=== PATIENT | female | born 1950 | race Caucasian/White ===

== ENCOUNTER 2023-10-27 15:52 | Emergency (ER) | payer MEDICARE ==
[~2023-10-27] VITALS: Ht 157.5 cm; Wt 65.8 kg
[2023-10-27 15:52] VITALS: TEMP 99
[2023-10-27] MEDS ORDERED: OLANZAPINE5 MG PO (16:17)
[2023-10-27] MEDS ORDERED: HALDOL5 MG PO (16:17)
[2023-10-27] MEDS ORDERED: TRAZODONE HCL50 MG PO (16:17)
[2023-10-27] MEDS ORDERED: DIVALPROEX SOD500 MG PO (16:17)
[2023-10-27] MEDS: SODIUM CHLORIDE 0.9% 1000ML 1,000 ML IV STA ×2 (16:23→17:43)
[2023-10-27 16:26] LABS: BASOPHILS % 0.5 % (0.0-1.0); EOSINOPHILS % 0.1 % (0.0-6.0); HEMATOCRIT 40.6 % (34.2-44.1); HEMOGLOBIN 13.7 g/dL (12.0-16.0); LYMPHOCYTES # (AUTO) 1.5 (1.0-3.2); LYMPHOCYTES % 17.2 % (18.0-39.1); MEAN CORPUSCULAR HEMOGLOBIN 33.6 pg (28-32); MEAN CORPUSCULAR HGB CONC 33.7 g/dL (31-35); MEAN CORPUSCULAR VOLUME 99.5 fL (81-99); MONOCYTES # (AUTO) 0.8 (0.2-0.8); MONOCYTES % 9.6 % (4.4-11.3); NEUTROPHILS # (AUTO) 6.1 (2.1-6.9); PLATELET COUNT 190 x10e3/uL (140-360); RED BLOOD COUNT 4.08 x10e6/uL (3.6-5.1); RED CELL DISTRIBUTION WIDTH 13.5 % (11.7-14.4); WHITE BLOOD COUNT 8.53 x10e3/uL (4.8-10.8)
[2023-10-27 16:42] LABS: COLOR,URINE YELLOW (YELLOW)
[2023-10-27 16:43] LABS: AMPHETAMINES SCREEN,URINE NEGATIVE (NEGATIVE); BENZODIAZEPINES SCREEN,URINE NEGATIVE (NEGATIVE); BILIRUBIN,URINE NEGATIVE (NEGATIVE); CANNABINOIDS SCREEN,URINE NEGATIVE (NEGATIVE); CLARITY,URINE HAZY (CLEAR); GLUCOSE, URINE NEGATIVE (NEGATIVE); KETONES,URINE TRACE (NEGATIVE); LEUKOCYTE ESTERASE ,URINE SMALL (NEGATIVE); METHADONE SCREEN, URINE NEGATIVE (NEGATIVE); NITRITE,URINE POSITIVE (NEGATIVE); OPIATES SCREEN,URINE NEGATIVE (NEGATIVE); PH,URINE 5.5 (5 - 7); PHENCYCLIDINE SCREEN,URINE NEGATIVE (NEGATIVE); PROTEIN,URINE DIPSTICK TRACE (NEGATIVE); URINE UROBILINOGEN 0.2 mg/dL (0.2 - 1)
[2023-10-27 16:46] LABS: ALBUMIN 3.5 g/dL (3.5-5.0); ALBUMIN/GLOBULIN RATIO 0.9 (0.8-2.0); ANION GAP 23.7 mmol/L (8-16); BILIRUBIN,TOTAL 0.3 mg/dL (0.2-1.2); CALCIUM 9.1 mg/dL (8.4-10.2); CREATININE, SERUM 1.19 mg/dL (0.57-1.11); MAGNESIUM 1.8 MG/DL (1.3-2.1); POTASSIUM 3.7 mmol/L (3.5-5.1); TOTAL PROTEIN 7.2 g/dL (6.5-8.1)
[2023-10-27 16:53] LABS: BACTERIA,URINE MANY /HPF; EPITHELIAL CELLS,URINE FEW /LPF; WBC,URINE (MAN) 21-50 /HPF (0-5)
[2023-10-27 16:56] LABS: INR 0.98; PROTHROMBIN TIME 13.7 seconds (11.9-14.5)
[2023-10-27 16:57] LABS: PARTIAL THROMBOPLASTIN TIME 26.8 seconds (23.8-35.5)
[2023-10-27 17:06] LABS: INFLUENZAE A&B ANTIGEN (RAPID) NEGATIVE (NEGATIVE); RESPIRATORY SYNC. VIRUS NEGATIVE (NEGATIVE)
[2023-10-27 17:08] LABS: THYROID STIMULATING HORMONE 4.224 uIU/mL (0.350-4.940)
[2023-10-27 17:18] LABS: TROPONIN I 0.838 ng/mL (0-0.300)
[2023-10-27] MEDS: ASPIRIN 81 MG CHEW TAB PO ONE (17:43)
[2023-10-27 18:00] LABS: ABG HCO3 21 mmol/L (22-26); ABG PCO2 33 mmHg (35-45); ABG PH 7.42 (7.35-7.45); ABG PO2 66 mmHg (80-105)
[2023-10-27 18:01] LABS: ABG TCO2 22
[2023-10-27] MEDS: Vancomycin IV 1 GM in SODIUM CHLORIDE 0.9% 250ML 250 ML IV ONE (18:03)
[2023-10-27 18:36] LABS: ANION GAP 13.8 mmol/L (8-16); BILIRUBIN,TOTAL 0.2 mg/dL (0.2-1.2); CALCIUM 7.5 mg/dL (8.4-10.2); CREATININE, SERUM 0.88 mg/dL (0.57-1.11); POTASSIUM 3.8 mmol/L (3.5-5.1); TOTAL PROTEIN 5.9 g/dL (6.5-8.1)
[2023-10-27 18:44] LABS: TROPONIN I 0.675 ng/mL (0-0.300)
[2023-10-27 19:47] VITALS: PULSE 62; RESP 20
[2023-10-27 20:14] VITALS: BP 136/83; PULSE 62; RESP 20; TEMP 99; O2SAT 96
== END 2023-10-27 19:55 | disposition other institution (70) ==
LOC: ER 16:03
DX: N28.9 Disorder of kidney and ureter, unspecified (principal); N39.0 Urinary tract infection, site not specified; E86.0 Dehydration; E11.65 Type 2 diabetes mellitus with hyperglycemia; R79.89 Other specified abnormal findings of blood chemistry; M62.82 Rhabdomyolysis; F31.9 Bipolar disorder, unspecified; Z11.52 Encounter for screening for COVID-19
CPT/HCPCS: 36415; 36600; 70450; 71045; 72128; 72131; 80053; 80164; 80307; 80329; 81001; 82550; 82805; 83735; 84443; 84484; 85025; 85610; 85730; 87040; 87086; 87186; 87400; 87420; 93005; 99284; J0696; J3370; J7030; J7050; U0002